=== PATIENT | female | born 1990 | race Caucasian/White ===

== ENCOUNTER 2025-01-07 16:53 | Outpatient (CLI) | payer MEDICAID, SELFPAY ==
[2025-01-07 17:30] VITALS: BP 132/78; PULSE 102; RESP 18; TEMP 36.3
[2025-01-07] MEDS: 0.9% Saline Lock 10 ML Syringe IV (17:30)
[2025-01-07 17:35] VITALS: BMI 52.6
[2025-01-07 17:44] LABS: Hematocrit 32.0 % (37-47); Hemoglobin 10.7 g/dL (12.0-15.0); Mean Corp Hgb Conc 33.4 g/dL (32-36); Mean Corpuscular Volume 97.0 fL (81-99); Mean Platelet Vol. 11.5 fl (6.2-12.0); Platelet Count 195 K/mm3 (150-450); RBC Distribution Width CV 14.8 % (11.6-14.6); RBC Distribution Width SD 52.3 fl (35.1-43.9); Red Blood Count 3.30 M/mm3 (4.2-5.4); White Blood Count 10.4 K/mm3 (4.4-11.0)
[2025-01-07 17:47] VITALS: BP 120/63; PULSE 107
[2025-01-07 17:58] LABS: Creatinine, Urine (random) 62.50 mg/dL (28.00-217.00); Protein, Urine (Random) 10.9 mg/dL (0.0-12.0); Protein:Creat Ratio 174 mg/g CRE (0-200)
[2025-01-07 18:05] VITALS: BP 121/64; PULSE 102
[2025-01-07 18:19] VITALS: BP 122/65; PULSE 100
[2025-01-07 18:47] LABS: AST(SGOT) 11 U/L (<=31); Alanine Aminotransfer ALT/SGPT 12 U/L (<=34); Estimated Creatinine Clearance 195.81 ml/min (50-250); Uric Acid 4.5 mg/dL (2.6-6.0)
[2025-01-07 18:52] LABS: Syphilis Antibodies Nonreactive (Nonreactive)
--- NOTE | 2025-01-09 17:32 | OB.TRI.NOTE ---
[facility] - General General Date of Admission: 01/07/25 Date of Service: 01/07/25 HPI Narrative YUNG DOMINGUEZ, is a 34 F who presents with elevated zBP, mild intermittent MEMBRENO. No Maternal Data Information Final KARIN: 01/30/25 Gestational age: 36 5/7 PFSH PFS Home Medications ?Medication ?Instructions ?Recorded ?Last Taken ?Type aspirin 81 mg chewable tablet 2 tab PO DAILY 01/07/25 01/06/25 21:00 History (Aspirin Childrens) 2 tabs ferrous sulfate 325 mg (65 mg 325 mg PO QODAY 01/07/25 01/06/25 07:30 History iron) tablet (Feosol) 325 mg insulin glargine U-300 conc 300 150 unit subcut .Qam DM 01/07/25 01/07/25 07:30 History unit/mL (3 mL) subcutaneous pen 150 units (Toujeo Max U-300 SoloStar) insulin glargine U-300 conc 300 160 unit subcut QHS DM 01/07/25 01/06/25 21:00 History unit/mL (3 mL) subcutaneous pen (Toujeo Max U-300 SoloStar) insulin lispro 100 unit/mL 85 unit subcut .TID AC DM 01/07/25 01/07/25 13:00 History subcutaneous pen (Humalog KwikPen 85 units (U-100) Insulin) vits,calcium no.78-iron 1 tab PO Q24H 01/07/25 01/07/25 07:30 History fumarate-folic acid 29 mg-1 mg 1 TAB tablet (Prenatabs FA) Allergy/AdvReac Type Severity Reaction Status Date / Time adhesive tape Allergy Severe Hives Verified 01/07/25 17:36 Physical Exam Narrative awake, alert, NAD 2+ DTRs, no clonus, 2+ sabi,a abd- soft, nontender, graivid NST FHR Rate Baby A Baseline: normal Variability:: Moderate Accelerations:: 15 x 15 Decelerations:: None NST Reactive:: Yes Uterine Activity:: no regular ctxs Assessment & Plan (1) 36 weeks gestation of : PLAN: previous c/s, maternal obesity plans repeat at [facility] due to BMI > 50 adn GDM on insulin. D/w her plan for insulin before delivery elevated bp without dx of HTN, no evidence of preeclampsia. Return or call for sxs/symptoms of severe preeclampsia, labs normal today kick counts BPP 8/8 in office, NST reactive
== END 2025-01-07 19:00 | disposition home or self-care (01) ==
LOC: WPOUT 17:06 → WP 17:07
PROVIDERS: Referring Provider Obstetrics & Gynecology; Visit Provider Obstetrics & Gynecology
DX: O99.891 Other specified diseases and conditions complicating pregnancy (principal); R51.9 Headache, unspecified; Z79.82 Long term (current) use of aspirin; Z79.01 Long term (current) use of anticoagulants; Z3A.36 36 weeks gestation of pregnancy; O99.213 Obesity complicating pregnancy, third trimester
CPT/HCPCS: 36415; 59025; 59050; 82565; 82570; 84156; 84450; 84460; 84550; 85027; 86780; 86850; 86900; 86901; 99221; A4216; G0378